=== PATIENT | male | born 1990 | race Caucasian/White ===

== ENCOUNTER → 2021-05-07 | Outpatient (CLI) | payer BC ==
--- NOTE | 2021-05-08 09:04 | SLEEP ---
DATE OF STUDY: 05/07/2021 ATTENDING PHYSICIAN: Dr. He Mejia. The patient is a 30-year-old who weighs 350 pounds with a BMI of 45. The patient's [place] score was 6. The patient underwent split night study performed at [facility]. During the night study, the patient spent 481 minutes in bed and slept for 429 minutes with a sleep efficiency of 89%. Sleep latency was 17 minutes with a REM latency of 199 minutes. Sleep architecture showed normal stage 1 and stage 2 sleep, normal slow wave and normal REM sleep. During the initial diagnostic portion of the study, the patient slept for 105 minutes. During that time, there were 15 obstructive apneas, no mixed apneas, 1 central apnea and 44 hypopneas. The patient's AHI was 34 per hour. Supine AHI 34 per hour. REM sleep was not seen during the diagnostic portion. EKG monitoring revealed average heart rate of 92 beats per minute. Nocturnal oximetry study revealed lowest oxygen saturation of 80%. 9% time oxygen saturation remained between 80% and 89%. No PLMs seen. The patient was started on CPAP and titrated up to 12 cm of water. At the final pressure, the patient slept for 172 minutes. The patient had supine as well as REM sleep. The patient's AHI was reduced to 1 per hour and oxygen saturation remained above 89%. IMPRESSION: 1. Severe obstructive sleep apnea at an AHI of 34 per hour. 2. Nocturnal hypoxia secondary to obstructive sleep apnea, but resolved with CPAP. RECOMMENDATIONS: 1. CPAP at 12 cm water completely eliminated the patient's sleep apnea and should be used on a nightly basis. 2. Follow up in 4-6 weeks to assess compliance with CPAP and to document clinical improvement. 3. Weight loss is advised. 4. Avoid [employer] depressants. 5. Cautioned regarding driving until symptoms of sleep apnea resolve with the use of CPAP. HERLINDA DR: Edna TID: [id number]
== END ==
LOC: SLPLAB 19:14
PROVIDERS: ATTEND Family Medicine
DX: G47.10 Hypersomnia, unspecified (principal); I10 Essential (primary) hypertension; R06.83 Snoring; E66.01 Morbid (severe) obesity due to excess calories
CPT/HCPCS: 95810